=== PATIENT | female | born 1970 | race Caucasian/White ===

== ENCOUNTER 2018-03-28 07:03 | Emergency (ER) | payer BC ==
[2018-03-28] MEDS ORDERED: Sodium Chloride 0.9% 10 ML Syringe FLUSH PRN (07:45)
[2018-03-28 07:47] VITALS: BP 119/70
--- NOTE | 2018-03-28 12:04 | CT ---
DATE OF SERVICE: 03/28/18 CLINICAL DATA: flank pain UNENHANCED ABDOMEN AND PELVIC CT: Multislice acquisition through the abdomen and pelvis without IV or oral contrast was performed. No priors. The lung bases are clear. There is a small hiatal hernia. The unenhanced liver appears normal. The gallbladder is mildly distended. No calcified gallstones. The spleen appears normal. The pancreas appears normal. The right and left adrenals appear normal. The right and left kidneys appear normal. No nephrocalcinosis or nephrolithiasis. No hydronephrosis or hydroureter. There is a small amount of fluid within the bladder. It appears grossly normal. There is fluid within the endometrial cavity of the uterus. There are low density lesions in both ovaries consistent with bilateral ovarian cysts. The appendix is not dilated. No evidence of appendicitis. No free air. No free fluid. No dilated loops of bowel. No adenopathy. No aortic aneurysm. There is an umbilical hernia containing fat. IMPRESSION: No acute abnormalities. Other findings as discussed above. [id number] [facility]
--- NOTE | 2018-03-28 16:51 | EDM.PDOC ---
ED HPI GENERAL MEDICAL PROBLEM - General Chief Complaint: General Stated Complaint: POSSIBLE KIDNEY STONE Time Seen by Provider: 03/28/18 08:00 Source of Information: Reports: Patient History Limitations: Reports: No Limitations - History of Present Illness INITIAL COMMENTS - FREE TEXT/NARRATIVE: This is a 47yo F here for abdominal pain. She has had this pain in the past and has been diagnosed with a kidney stone in the past. She feels that the pain has improved. Patient denies any fever or chills. She states the pain started at 3am this morning. Onset: Sudden Duration: Hour(s):, Improving Location: Reports: Abdomen Right Flank Pain Score (Numeric/FACES): 5 - Related Data Allergies Allergy/AdvReac Type Severity Reaction Status Date / Time cephalexin Allergy Rash Verified 07/17/16 17:47 Past Medical History HEENT History: Reports: None Cardiovascular History: Reports: High Cholesterol Respiratory History: Reports: None Gastrointestinal History: Reports: None Genitourinary History: Reports: None [employer]MI[employer] TE[employer]ER History: Reports: Musculoskeletal History: Reports: Back Pain, Chronic Neurological History: Reports: None Psychiatric History: Reports: Depression Endocrine/Metabolic History: Reports: None Hematologic History: Reports: None Immunologic History: Reports: None Oncologic (Cancer) History: Reports: None Dermatologic History: Reports: None ED ROS GENERAL - Review of Systems Review Of Systems: ROS reveals no pertinent complaints other than HPI. ED EXAM, GENERAL - Physical Exam Exam: See Below Exam Limited By: No Limitations General Appearance: Alert, WD/WN, Mild Distress Ears: Normal External Exam Nose: Normal Inspection Throat/Mouth: Normal Inspection Head: Atraumatic, Normocephalic Neck: Normal Inspection Respiratory/Chest: No Respiratory Distress Cardiovascular: Normal Peripheral Pulses GI/Abdominal: Normal Bowel Sounds, Soft, Non-Tender Back Exam: Normal Inspection, CVA Tenderness (R) Extremities: Normal Inspection Neurological: Alert, Oriented, CN II-XII Intact Course - Vital Signs Last Recorded V/S: Last Vital Signs Temp 37.2 C 03/28/18 07:15 Pulse 64 03/28/18 07:39 Resp 18 03/28/18 07:39 BP 119/70 03/28/18 07:39 Pulse Ox 97 03/28/18 07:39 - Orders/Labs/Meds Orders: Active Orders 24 hr Category Date Time Status Saline Lock Insert [OM.PC] Routine Oth 03/28/18 07:25 Ordered Meds: Medications Discontinued Medications Generic Name Dose Route Start Last Admin Trade Name Joel PRN Reason Stop Dose Admin Sodium Chloride 10 ml 03/28/18 07:45 03/28/18 07:58 Saline Flush FLUSH 10 ml ASDIRECTED PRN Administration Keep Vein Open Departure - Departure Time of Disposition: 08:30 Disposition: Home, Self-Care 01 Condition: Good Clinical Impression: Renal calculus, right - Discharge Information Instructions: Kidney Stones, Flank Pain, Adult, [id number] Referrals: PCP,None [Primary Care Provider] - Forms: ED Department Discharge Additional Instructions: Change diet, consider the kidney stone diet or a healthy level of calcium in the diet. If this happens again, filter urine and bring stone in for analysis. Follow up in the clinic as needed. - Problem List & Annotations (1) Renal calculus, right SNOMED Code(s): 42215038 Code(s): N20.0 - CALCULUS OF KIDNEY Status: Acute Priority: High - Problem List Review Problem List Initiated/Reviewed/Updated: Yes - My Orders Last 24 Hours: My Active Orders 03/28/18 07:25 Saline Lock Insert [OM.PC] Routine - Assessment/Plan Last 24 Hours: My Active Orders 03/28/18 07:25 Saline Lock Insert [OM.PC] Routine Plan: Counseled on renal calculi and use of strainer if symptoms develop. Discussed CT scan of abdomen and follow up with PCP as needed. Discussed that likely the stone has passed and for further close monitoring and management. F/u as needed. Discussed a renal diet and renal stone diet.
== END 2018-03-28 08:40 | disposition home or self-care (01) ==
LOC: LB.ED 07:03
DX: N20.0 Calculus of kidney (principal); Z88.1 Allergy status to other antibiotic agents
CPT/HCPCS: 74176; 99284; J7050

== ENCOUNTER 2023-08-12 10:53 | Day surgery (SDC) | payer OTHER ==
[~2023-08-12 10:53] MED LIST: Metoclopramide 10 MG/2 ML SDV IV PRN
[2023-08-12] MEDS: Sodium Chloride 0.9% 1,000 ML IV SCH (12:00)
[2023-08-12 13:45] VITALS: BP 126/67; PULSE 71
== END 2023-08-12 14:22 | disposition home or self-care (01) ==
LOC: LB.SDS 10:53
PROVIDERS: ATTEND Surgery
DX: Z12.11 Encounter for screening for malignant neoplasm of colon (principal); K64.4 Residual hemorrhoidal skin tags
CPT/HCPCS: J2704; J7030